=== PATIENT | female | born 1985 | race Caucasian/White ===

== ENCOUNTER 2024-06-18 19:34 | Emergency (ER) | payer OTHER, SELFPAY ==
[2024-06-18 19:47] VITALS: BP 127/68
[2024-06-18 21:51] VITALS: BMI 30.2
--- NOTE | 2024-06-18 22:00 | ED.GENMED ---
History of Present Illness
General
Chief Complaint: Skin Surface Trauma
Time Seen by Provider: 06/18/24 22:00
History of Present Illness
History of Present Illness:
TIME OF INITIAL ENCOUNTER: 10 left
HPI: Scissors injury to PIP of the left second digit. The bleeding was not well-controlled so she came in here for further evaluation. The patient denies any other injury or concern.
EXAM:
GENERAL: Well appearing in no distress
HEENT: Moist oral mucosa
NEUROLOGIC: Excellent strength all extremities, no obvious coordination deficits
PSYCHIATRIC: Appropriate mental status, normal insight and judgement
EXTREMITIES: There is a 2.5 cm laceration over the dorsal aspect of the left second PIP joint with scant ongoing bleeding
SKIN: No rash, no lesions, as above
NUMBER AND COMPLEXITY OF PROBLEMS ADDRESSED AT THE ENCOUNTER
� Chronic conditions affecting care: Iron deficiency anemia, celiac disease
� Acute Exacerbation and/or Progression of Chronic Illness: This is an acute problem
� Differential Diagnosis includes: Laceration, no clinical evidence or suspicion for retained foreign body
AMOUNT AND/OR COMPLEXITY OF DATA TO BE REVIEWED AND ANALYZED
� I performed an independent evaluation of and my interpretation is:
EKG:
CT:
X-rays:
Laboratory Studies:
Other:
� Review of other/old records: The patient was here in 2020 with a delayed hemorrhage
� Clinical information was obtained by an independent historian: None needed
� Prescriptions/Medications Considered but not given:
� Further testing considered but not performed:
RISK OF COMPLICATIONS AND/OR MORBIDITY OR MORTALITY OF PATIENT MANAGEMENT
� Social determinants of health affecting care: Lives at home
� Discussion with other providers:
� Escalation of care including admission/observation vs risk of discharge considered: Laceration was cleaned, irrigated, and closed. She states her tetanus status is up-to-date
ANY OTHER UPDATES:
Past History
Past History
ED Past Medical History: Hypothyroidism
ED Past Surgical History: Tonsilectomy and Other (Ectopic )
Social History
Tobacco: Non-smoker
Alcohol: None
Drug: None
Personal:
Living: with family
Employment: Employed
Family History
Family History: Other (Noncontributory)
Phy Exam
Physical Exam
Physical Exam:
See HPI
Course
Vital Signs
Initial and Last Documented VS:
Initial Vital Signs
Temp Pulse Resp BP Pulse Ox
98.1 F 84 20 127/68 98
06/18/24 19:47 06/18/24 19:47 06/18/24 19:47 06/18/24 19:47 06/18/24 19:47
Last Documented Vital Signs
Temp Pulse Resp BP Pulse Ox
98.1 F 84 20 127/68 98
06/18/24 19:47 06/18/24 19:47 06/18/24 19:47 06/18/24 19:47 06/18/24 19:47
Procedures
Laceration Closure
Left Proximal Dorsal Second:
Status of Wound: clean
Size of Wound in cm: 2.5
Preparation: cleaned with saline
Anesthesia: 1% Lidocaine
Revision/Debridement: routine- no revision
Wound exploration: explored to base- no FB
Type of Closure: single layer closure
Skin Closure Material: 4-0 nylon
Number of sutures: 4
*Critical Care Note
Total Time (30-74mins, 75-104mins- exclusive of procedures): Not Applicable
ED Attending Note
-
Portions of this chart may have been created with voice recognition software.� Occasional wrong word or��sound alike� substitutions may have occurred due to the inherent limitations of voice recognition software.
Discharge Plan
Departure
Patient Disposition: Home (Routine Discharge)
Date of Disposition: 06/18/24
Time of Disposition: 23:00
Patient with high blood pressure during this ER visit?: Yes
Discharge Problem:
Finger laceration
Prescriptions:
No Action
sertraline 100 MG tablet
100 mg PO DAILY
levothyroxine 50 MCG tablet
50 mcg PO DAILY
prenat.vits,yariel,[id number] [ #2] 1 TAB tablet
1 tab PO DAILY
Referrals:
Armand Carlton MD [Family Provider] -
Activity Restrictions/Additional Instructions:
Have stitches removed in 10-14 days by your doctor. Use splint for the 1st day or 2.
Interventions
Interventions:
*Risk Screen - Suicide Last Done: 06/18/24 19:47
*General Assessment Last Done: 06/18/24 21:52
*Neglect/Abuse Screening Last Done: 06/18/24 21:52
*ED COVID-19 Vaccine History Last Done: 06/18/24 19:47
ED-Skin Assessment Last Done: 06/18/24 21:52
Discharge Date and Time
Print Language: IRISH
== END 2024-06-18 23:16 | disposition home or self-care (01) ==
LOC: EMR 19:34
PROVIDERS: EMERGENCY PHYSICIAN Emergency Medicine; FAMILY PHYSICIAN Family Medicine
DX: S61.211A Laceration without foreign body of left index finger without damage to nail, initial encounter (principal); W27.2XXA Contact with scissors, initial encounter; E03.9 Hypothyroidism, unspecified
CPT/HCPCS: 99282; 12001

== ENCOUNTER 2025-02-25 14:34 | Emergency (ER) | payer OTHER, SELFPAY ==
[2025-02-25 14:43] VITALS: BP 109/65
[2025-02-25 15:07] LABS: % Eosinophils 0.6 % (0-6); % Immature Granulocytes 0.4 % (0-0.5); % Lymphocytes 23.1 % (20.5-51.1); % Monocytes 4.6 % (1.7-9.3); % Neutrophils 70.3 % (42.2-75.2); Absolute Basophils 0.1 10^3/uL (0-0.2); Absolute Lymphocytes 1.6 10^3/uL (1.2-3.4); Absolute Monocytes 0.3 10^3/uL (0.1-0.6); Absolute Neutrophils 4.9 10^3/uL (1.4-6.5); Hematocrit 38.9 % (37.0-47.0); Mean Corp Hgb Conc. 33.4 g/dL (33.0-37.0); Mean Corpuscular Hgb 27.8 pg (27.0-31.0); Mean Corpuscular Volume 83.3 fL (81.0-99.0); Mean Platelet Volume 10.7 fL (7.4-10.4); Nucleated Red Blood Cells % 0 %; Platelet Count 249 10^3/uL (130-400); Red Blood Cell Count 4.67 10^6/uL (4.20-5.40); Red Cell Dist. Width 12.4 % (11.5-14.5); White Blood Cell Count 6.9 10^3/uL (4.8-10.8)
[2025-02-25 15:39] LABS: Blood Urea Nitrogen 5 mg/dl (7-17); Calcium 9.7 mg/dl (8.4-10.2); Carbon Dioxide 25 mmol/L (22-30); Chloride 107 mmol/L (98-107); Glucose 112 mg/dl (70-99); Potassium 4.4 mmol/L (3.5-5.1); Sodium 140 mmol/L (135-145); eGFR > 60.00
[2025-02-25 16:07] VITALS: BMI 27.1
[2025-02-25 16:12] VITALS: BP 114/72
--- NOTE | 2025-02-25 17:08 | ED.GENMED ---
History of Present Illness
General
Chief Complaint: Weakness
Time Seen by Provider: 02/25/25 15:51
History of Present Illness
History of Present Illness:
39-year-old female with history of celiac's disease presenting to the emergency department for multiple symptoms. Patient the past 2 weeks she has had bodyaches and generally felt unwell. Initially was having some low-grade fevers and did have a
rash to her extremities which resolved on its own. Her son was sick with similar symptoms, thought potentially to have had fifth disease. More recently, she has developed joint pain and swelling. She also notes some neck pain and headache.
Denies abdominal pain or vomiting. Denies chest pain. Denies any known insect or tick bites. Denies additional acute medical complaints.
Past History
Past History
ED Past Medical History: Hypothyroidism
ED Past Surgical History: Tonsilectomy and Other (Ectopic )
Social History
Tobacco: Non-smoker
Alcohol: None
Drug: None
Personal:
Living: with family
Employment: Employed
Family History
Family History: Other (Noncontributory)
Phy Exam
Physical Exam
Physical Exam:
General: Well-appearing, no clinical signs of dehydration, nontoxic and in no acute distress
HEENT: protecting airway
Neck: appears supple, no meningismus or rigidity
CV: Normal heart rate, regular rhythm
Resp: No accessory muscle use, no increased work of breathing, lungs clear to auscultation bilaterally
Abd: Soft and non-distended, no tenderness to palpation
Extremities: No deformities, no swelling, no erythema
Neuro: alert, no focal neurologic deficit
: deferred
Rectal: deferred
Psych: Normal affect
Skin: Intact
Course
Orders/Labs/Results
Orders:
Orders
02/25/25 14:52
BMP [Basic Metabolic Panel] Urgent
Complete Blood Count/With Diff Urgent
02/25/25 16:55
Lyme Progressive Urgent
Monotest Urgent
TSH Reflex To Free T4 Urgent
02/25/25 18:44
Doxycycline [Vibramycin] 100 mg PO NOW STA
Abnormal Lab Results
02/25/25
14:52
MPV 10.7 H fL
(7.4-10.4)
BUN 5 L mg/dl
(7-17)
Glucose 112 H mg/dl
(70-99)
02/25/25 14:52
02/25/25 14:52
Vital Signs
Initial and Last Documented VS:
Initial Vital Signs
Temp Pulse Resp BP Pulse Ox
98.2 F 86 18 109/65 98
02/25/25 14:43 02/25/25 14:43 02/25/25 14:43 02/25/25 14:43 02/25/25 14:43
Last Documented Vital Signs
Temp Pulse Resp BP Pulse Ox
98.5 F 68 16 114/72 99
02/25/25 16:12 02/25/25 16:12 02/25/25 16:12 02/25/25 16:12 02/25/25 17:12
MDM/Problems Addressed
MDM/Problems Addressed:
39-year-old female presenting for 2 weeks of low-grade fever, body aches, joint pain. Vital signs on arrival are normal.
On exam, patient is resting comfortably, no acute distress or discomfort. She is afebrile, nontoxic. Symptoms appear consistent with a viral syndrome, with viral myalgias. She is currently afebrile, however did take ibuprofen prior to arrival.
Patient notes some neck pain and headache. No meningeal signs or present concern for meningitis. Differential considerations include virus versus tickborne disease versus mononucleosis versus rheumatologic disorder. Screening laboratory analysis
obtained prior to my assessment, no leukocytosis or electrolyte derangement. No transaminitis. No active rash. Will check Lyme, mononucleosis, TSH.
18:45 - Patient's mono and TSH are within normal limits. In the setting of rash and myalgias, again Lyme is a consideration. Will prophylactically start patient on doxycycline given endemic region. Otherwise hemodynamically stable. Feel stable
for discharge with close interval follow-up with primary care doctor. Return precautions discussed and patient verbalized understanding
*Pulse Oximetry
SaO2: 99
Oxygen Mode of Delivery: Room air
*Critical Care Note
Total Time (30-74mins, 75-104mins- exclusive of procedures): Not Applicable
ED Attending Note
-
Portions of this chart may have been created with voice recognition software.� Occasional wrong word or��sound alike� substitutions may have occurred due to the inherent limitations of voice recognition software.
Discharge Plan
Departure
Prescriptions:
No Action
sertraline 100 MG tablet
100 mg PO DAILY
levothyroxine 50 MCG tablet
50 mcg PO DAILY
prenat.vits,yariel,vsc-[id number] [ #2] 1 TAB tablet
1 tab PO DAILY
Referrals:
Armand Carlton MD [Family Provider, Family Practice]
Interventions
Interventions:
*Risk Screen - Suicide Last Done: 02/25/25 14:43
*General Assessment Last Done: 02/25/25 14:48
*Neglect/Abuse Screening Last Done: 02/25/25 14:43
*ED COVID-19 Vaccine History Last Done: 02/25/25 16:12
ED- Cardiac Assessment Last Done: 02/25/25 17:35
ED- Neurological Assessment Last Done: 02/25/25 17:35
ED- Pulmonary Assessment Last Done: 02/25/25 17:35
Discharge Date and Time
Print Language: ITALIAN
[2025-02-25 17:15] LABS: Monotest Negative (Negative)
[2025-02-25 17:51] LABS: TSH Reflex To Free T4 1.51 uIU/ml (0.47-4.68)
[2025-02-25] MEDS: VIBRAMYCIN 100 MG PO (19:00)
[2025-02-28 13:43] LABS: Lyme Antibody Screen, EIA Negative (Negative)
== END 2025-02-25 19:03 | disposition home or self-care (01) ==
LOC: EMR 14:34
PROVIDERS: Emergency Medicine; EMERGENCY PHYSICIAN Student in an Organized Health Care Education/Training Program; FAMILY PHYSICIAN Family Medicine
DX: M79.10 Myalgia, unspecified site (principal); K90.0 Celiac disease
CPT/HCPCS: 99283; 80048; 84443; 85025; 86308; 86618